=== PATIENT | female | born 1980 | race Hispanic/Latino ===

== ENCOUNTER 2018-02-03 04:07 | Emergency (ER) | payer OTHER ==
[2018-02-03] MEDS ORDERED: Sodium Chloride 0.9% 1,000 ML IV STA ×2 (04:33→05:58)
[2018-02-03 04:50] LABS: BASO # 0.1 K/uL (0.0-0.2); BASO % 0.5 % (0.0-2.0); HEMOGLOBIN 13.6 g/dL (12.0-16.0); LYMPH # 0.8 K/uL (1.0-4.3); LYMPH % 7.8 % (20.0-40.0); MEAN CELL VOLUME 78.3 fl (81.0-99.0); MEAN CORPUSCULAR HEMOGLOBIN 26.2 pg (27.0-31.0); MEAN CORPUSCULAR HGB CONC 33.4 g/dL (33.0-37.0); MEAN PLATELET VOLUME 8.6 fl (7.2-11.7); MONO # 0.2 K/uL (0.0-0.8); NEUT # 9.7 K/uL (1.8-7.0); NEUT % 89.7 % (50.0-75.0); PLATELET COUNT 336 K/uL (130-400); RED CELL DISTRIBUTION WIDTH 13.6 % (11.5-14.5); WHITE BLOOD COUNT 10.9 K/uL (4.8-10.8)
[2018-02-03] MEDS ORDERED: DiphenhydrAMINE 50 mg/ml Inj IV STA (04:51)
--- NOTE | 2018-02-03 04:54 | ED PDOC ---
HPI: Abdomen Time Seen by Provider: 02/03/18 04:19 Chief Complaint (Nursing): GI Problem Chief Complaint (Provider): GI Problem History Per: Patient History/Exam Limitations: no limitations Onset/Duration Of Symptoms: Hrs Current Symptoms Are (Timing): Still Present Associated Symptoms: Nausea, Vomiting Additional Complaint(s): 37 year old female with no significant past medical history presents to the ED for nausea and vomiting that started a few hours ago. Patient reports she started using Tobramycin eye drops two days ago. She states she developed severe nausea and 6 episodes of nonbloody nonbilious vomiting in the last few hours. Patient has a sense of dizziness but denies abdominal pain or any other medical complaints. PMD: Dr. Lundberg Past Medical History Reviewed: Historical Data, Nursing Documentation, Vital Signs Vital Signs: Last Vital Signs Temp 98.6 F 02/03/18 04:14 Pulse 82 02/03/18 04:14 Resp 16 02/03/18 04:14 BP 151/95 H 02/03/18 04:14 Pulse Ox 97 02/03/18 05:58 - Medical History PMH: No Chronic Diseases - Surgical History Surgical History: No Surg Hx - Family History Family History: States: Unknown Family Hx - Social History Current smoker - smoking cessation education provided: No Ex-Smoker (has not smoked in the last 12 months): No Alcohol: None Drugs: Denies - Home Medications Home Medications: Ambulatory Orders Medication Instructions Recorded Ofloxacin Ophth 0.3% [Ocuflox 2 drop OD QID #1 bottle 02/03/18 Ophth 0.3%] - Allergies Allergies/Adverse Reactions: Allergies Allergy/AdvReac Type Severity Reaction Status Date / Time nitrofurantoin Allergy SHORTNESS Verified 02/03/18 04:17 [From Macrobid] OF BREATH Sulfa (Sulfonamide Allergy RASH Verified 02/03/18 04:17 Antibiotics) tobramycin Allergy NAUSEA Verified 02/03/18 04:21 Review of Systems ROS Statement: Except As Marked, All Systems Reviewed And Found Negative Gastrointestinal: Positive for: Nausea, Vomiting (x6 ) Physical Exam - Reviewed Nursing Documentation Reviewed: Yes Vital Signs Reviewed: Yes - Physical Exam Appears: Positive for: Uncomfortable Head Exam: Positive for: ATRAUMATIC, NORMOCEPHALIC Skin: Positive for: Normal Color, Warm, Dry Eye Exam: Positive for: Normal appearance, EOMI, PERRL, Other (right lower lid hordeolum) Neck: Positive for: Normal, Painless ROM Cardiovascular/Chest: Positive for: Regular Rate, Rhythm. Negative for: Murmur Respiratory: Positive for: Normal Breath Sounds. Negative for: Respiratory Distress Gastrointestinal/Abdominal: Positive for: Normal Exam, Soft. Negative for: Tenderness Extremity: Positive for: Normal ROM (upper and lower) Neurologic/Psych: Positive for: Alert, Oriented (x3) - Laboratory Results Result Diagrams: 02/03/18 04:46 02/03/18 04:46 - ECG O2 Sat by Pulse Oximetry: 97 (RA) Pulse Ox Interpretation: Normal Medical Decision Making Medical Decision Making: Time: 4:33 Initial Impression: 37 year old with acute nausea and vomiting Initial Plan: --Labs --IV fluids --Zofran Time: 6:02 --Patient reports improvement in symptoms. Labs reviewed and show no clinically significant abnormalities. Diagnosis adverse drug reaction. Scribe Attestation: Documented by Teresita Medrano, acting as a scribe for Nabor Bragg MD Provider Scribe Attestation: All medical record entries made by the Scribe were at my direction and personally dictated by me. I have reviewed the chart and agree that the record accurately reflects my personal performance of the history, physical exam, medical decision making, and the department course for this patient. I have also personally directed, reviewed, and agree with the discharge instructions and disposition. Disposition - Clinical Impression Clinical Impression: Adverse drug event - Disposition Referrals: Rosanne Lundberg MD [Primary Care Provider] - Disposition Time: 06:02 Condition: STABLE Prescriptions: Ofloxacin Ophth 0.3% [Ocuflox Ophth 0.3%] 2 drop OD QID #1 bottle Instructions: Adverse Drug Reactions, Adult Forms: [employer] (Spanish)
[2018-02-03] MEDS ORDERED: Promethazine 25MG/50ML NS IVPB STA (04:58)
[2018-02-03 04:59] LABS: ALB/GLOB RATIO 1.4 (1.0-2.1); ALBUMIN 5.2 g/dL (3.5-5.0); ALT/SGPT 45 U/L (9-52); AST/SGOT 36 U/L (14-36); BLOOD UREA NITROGEN 10 mg/dl (7-17); CALCIUM 10.2 mg/dL (8.4-10.2); GFR AFRICAN-AMERICAN > 60; GFR NON-AFRICAN AMERICAN > 60
[2018-02-03] MEDS ORDERED: Promethazine 25MG/50ML NS IVPB ONE (05:00)
[2018-02-03 05:48] LABS: EOSINOPHIL 1 % (0-7); LYMPHOCYTE 6 % (20-50); MONOCYTE 1 % (0-10); MYELOCYTE 1 % (0-0); NEUTROPHIL 91 % (42-75); TOTAL CELLS COUNTED 100
[2018-02-03 05:50] LABS: PLATELET ESTIMATE NORMAL (NORMAL)
[2018-02-03 05:51] LABS: ANISOCYTOSIS SLIGHT; HYPOCHROMIC MODERATE
[2018-02-03 08:24] VITALS: BP 129/86; PULSE 72; RESP 18; TEMP 97.6; O2SAT 99
== END 2018-02-03 08:23 | disposition home or self-care (01) ==
LOC: H.ER 04:07
DX: T88.7XXA Unspecified adverse effect of drug or medicament, initial encounter (principal); Z88.1 Allergy status to other antibiotic agents
CPT/HCPCS: 80053; 81025; 85025; 96374; 99283; J1200; J2405; J2550; J2765; J7030

== ENCOUNTER 2018-03-01 08:49 | Emergency (ER) | payer OTHER ==
[2018-03-01 09:00] VITALS: BMI 27.4
[2018-03-01] MEDS ORDERED: Sodium Chloride 0.9% 1,000 ML IV STA ×2 (10:14→11:56)
[2018-03-01 10:29] LABS: BASO # 0.1 K/uL (0.0-0.2); BASO % 0.6 % (0.0-2.0); EOS % 0.3 % (0.0-4.0); LYMPH # 1.7 K/uL (1.0-4.3); LYMPH % 19.5 % (20.0-40.0); MEAN CELL VOLUME 77.8 fl (81.0-99.0); MEAN CORPUSCULAR HEMOGLOBIN 25.6 pg (27.0-31.0); MEAN CORPUSCULAR HGB CONC 32.9 g/dL (33.0-37.0); MEAN PLATELET VOLUME 8.5 fl (7.2-11.7); MONO # 0.7 K/uL (0.0-0.8); MONO % 7.6 % (0.0-10.0); NEUT # 6.2 K/uL (1.8-7.0); NRBC % 0.2 % (0.0-0.0); RBC 5.46 Mil/uL (3.80-5.20); RED CELL DISTRIBUTION WIDTH 13.7 % (11.5-14.5); WHITE BLOOD COUNT 8.6 K/uL (4.8-10.8)
[2018-03-01 10:42] LABS: ALB/GLOB RATIO 1.4 (1.0-2.1); ALBUMIN 4.9 g/dL (3.5-5.0); ALT/SGPT 48 U/L (9-52); AST/SGOT 42 U/L (14-36); BLOOD UREA NITROGEN 9 mg/dl (7-17); CALCIUM 9.7 mg/dL (8.4-10.2); GFR NON-AFRICAN AMERICAN > 60
--- NOTE | 2018-03-01 10:47 | ED PDOC ---
HPI:Nausea, Vomiting, Diarrhea Time Seen by Provider: 03/01/18 09:00 Chief Complaint (Nursing): Abdominal Pain Chief Complaint (Provider): Nausea, vomiting History Per: Patient History/Exam Limitations: no limitations Onset/Duration Of Symptoms: Days Current Symptoms Are (Timing): Still Present Quality Of Discomfort: denies: "Pain" Associated Symptoms: Nausea, Vomiting. denies: Fever, Diarrhea, Back Pain, Chest Pain, Constipation, Urinary Symptoms Additional History Per: Patient Additional Complaint(s): 37yo female, history of anxiety, comes to ER with complaints of nausea and vomiting x 5 days. She reports feeling increasingly anxious due to her vomiting and states she has not been able to tolerate PO intake. She denies any fever, chills, abdominal pain, chest pain, shortness of breath, or weakness. She also denies any diarrhea or constipation. Patient states she had similar symptoms 1 month ago and it has been coming intermittently. No other complaints. PMD: Dr. Lundberg Abnormal Vaginal Bleeding: No Past Medical History Reviewed: Historical Data, Nursing Documentation, Vital Signs Vital Signs: Last Vital Signs Temp 98.2 F 03/01/18 09:00 Pulse 89 03/01/18 09:00 Resp 20 03/01/18 09:00 BP 157/95 H 03/01/18 09:00 Pulse Ox 100 03/01/18 09:00 - Medical History PMH: Anxiety - Surgical History Surgical History: No Surg Hx - Family History Family History: States: No Known Family Hx - Social History Current smoker - smoking cessation education provided: No Alcohol: Social Drugs: Denies - Home Medications Home Medications: Ambulatory Orders Medication Instructions Recorded Metoclopramide [Reglan] 10 mg PO TID PRN #15 tab 03/02/18 - Allergies Allergies/Adverse Reactions: Allergies Allergy/AdvReac Type Severity Reaction Status Date / Time nitrofurantoin Allergy SHORTNESS Verified 03/02/18 10:20 [From Macrobid] OF BREATH Sulfa (Sulfonamide Allergy RASH Verified 03/02/18 10:20 Antibiotics) tobramycin Allergy NAUSEA Verified 03/02/18 10:20 Review of Systems ROS Statement: Except As Marked, All Systems Reviewed And Found Negative Constitutional: Negative for: Fever, Chills Cardiovascular: Negative for: Chest Pain Respiratory: Negative for: Shortness of Breath Gastrointestinal: Positive for: Nausea, Vomiting. Negative for: Abdominal Pain , Diarrhea, Constipation Physical Exam - Reviewed Nursing Documentation Reviewed: Yes Vital Signs Reviewed: Yes - Physical Exam Appears: Positive for: Non-toxic Head Exam: Positive for: ATRAUMATIC, NORMAL INSPECTION, NORMOCEPHALIC Skin: Positive for: Normal Color, Warm, DRY Eye Exam: Positive for: EOMI, Normal appearance, PERRL ENT: Positive for: Normal ENT Inspection Neck: Positive for: Normal, Painless ROM Cardiovascular/Chest: Positive for: Regular Rate, Rhythm Respiratory: Positive for: CNT, Normal Breath Sounds Gastrointestinal/Abdominal: Positive for: Normal Exam, Soft. Negative for: Tenderness, Distended, Guarding, Rebound Back: Positive for: Normal Inspection Extremity: Positive for: Normal ROM. Negative for: Pedal Edema Neurologic/Psych: Positive for: Alert, Oriented, Mood/Affect (anxious appearing) - Laboratory Results Result Diagrams: 03/01/18 10:18 03/01/18 10:18 - ECG O2 Sat by Pulse Oximetry: 100 (RA) Pulse Ox Interpretation: Normal Medical Decision Making Medical Decision Making: Impression: Vomiting x 5 days Plan: * Labs * Serum Beta-HCG * IV Fluids * Zofran 4mg IV * Ativan 1mg IVP Time: 1157 Labs reviewed with low potassium, normal white count. Serum Beta-HCG negative. Patient given K-Dur 20meq PO. Time: 1300 On reassessment, patient appears anxious, requesting more Ativan. pt repetatively requesting ativan. Time: 1316 Patient with persistent abdominal discomfort, however has not vomited while in the ER. Time: 1450 CT Abdomen/Pelvis FINDINGS: LOWER THORAX: Unremarkable. LIVER: Unremarkable. No gross lesion or ductal dilatation. GALLBLADDER AND BILE DUCTS: Unremarkable. PANCREAS: Unremarkable. No gross lesion or ductal dilatation. SPLEEN: Unremarkable. ADRENALS: Unremarkable. No mass. KIDNEYS AND URETERS: Unremarkable. No hydronephrosis. No solid mass. VASCULATURE: Unremarkable. No aortic aneurysm. BOWEL: Unremarkable. No obstruction. No gross mural thickening. APPENDIX: Unremarkable. Normal appendix. PERITONEUM: Unremarkable. No free fluid. No free air. LYMPH NODES: Unremarkable. No enlarged lymph nodes. BLADDER: Unremarkable. REPRODUCTIVE: Uterus is tip towards the left. The right an X is mildly asymmetrically prominent. Right dominant follicular cystic changes can simulate this . BONES: No acute fracture. OTHER FINDINGS: None. IMPRESSION: No bowel obstruction or free air. All physiological asymmetrical mild prominence of the right adnexa/right ovary - in this age group, dominant follicular cystic changes are believe most likely. If needed consider correlation with pelvic ultrasound. Time: 1448 Patient walked out of ER prior to being given CT report and discharge instructions. however she was reported to ambulating comfortably. Scribe Attestation: Documented by Georgiana Scott, acting as a scribe for Shilpa Doe MD. Provider Scribe Attestation: All medical record entries made by the Scribe were at my direction and personally dictated by me. I have reviewed the chart and agree that the record accurately reflects my personal performance of the history, physical exam, medical decision making, and the department course for this patient. I have also personally directed, reviewed, and agree with the discharge instructions and disposition. 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
[2018-03-01] MEDS ORDERED: Potassium Chloride 20 mEq ER Tab PO ONE ×2 (11:57→12:03)
--- NOTE | 2018-03-01 14:51 | CT ---
Date of service: 03/01/2018 PROCEDURE: CT Abdomen and Pelvis without intravenous contrast HISTORY: abd pain COMPARISON: None. TECHNIQUE: Without contrast.. Contrast dose: No significant appear oral contrast is present. . Patient likely received trace oral contrast per the trace scattered hyperdensity in the upper- GI tract noted Radiation dose: Total exam DLP = 751 mGy-cm. This CT exam was performed using one or more of the following dose reduction techniques: Automated exposure control, adjustment of the mA and/or kV according to patient size, and/or use of iterative reconstruction technique. FINDINGS: LOWER THORAX: Unremarkable. LIVER: Unremarkable. No gross lesion or ductal dilatation. GALLBLADDER AND BILE DUCTS: Unremarkable. PANCREAS: Unremarkable. No gross lesion or ductal dilatation. SPLEEN: Unremarkable. ADRENALS: Unremarkable. No mass. KIDNEYS AND URETERS: Unremarkable. No hydronephrosis. No solid mass. VASCULATURE: Unremarkable. No aortic aneurysm. BOWEL: Unremarkable. No obstruction. No gross mural thickening. APPENDIX: Unremarkable. Normal appendix. PERITONEUM: Unremarkable. No free fluid. No free air. LYMPH NODES: Unremarkable. No enlarged lymph nodes. BLADDER: Unremarkable. REPRODUCTIVE: Uterus is tip towards the left. The right an X is mildly asymmetrically prominent. Right dominant follicular cystic changes can simulate this . BONES: No acute fracture. OTHER FINDINGS: None. IMPRESSION: No bowel obstruction or free air. All physiological asymmetrical mild prominence of the right adnexa/right ovary -in this age group, dominant follicular cystic changes are believe most likely. If needed consider correlation with pelvic ultrasound
[2018-03-01 16:04] VITALS: BP 141/80; PULSE 74; RESP 18; TEMP 98.5
[2018-03-04 23:11] VITALS: O2SAT 100
== END 2018-03-01 16:00 | disposition home or self-care (01) ==
LOC: SUPCPDRO 08:49 → H.ER 08:49
DX: R10.9 Unspecified abdominal pain (principal); R11.2 Nausea with vomiting, unspecified; F41.9 Anxiety disorder, unspecified; Z88.1 Allergy status to other antibiotic agents
CPT/HCPCS: 74176; 80053; 81025; 84702; 85025; 96374; 96375; 96376; 99283; J2060; J2405; J7030